=== PATIENT | male | born 1995 | race Caucasian/White ===

== ENCOUNTER 2016-10-17 18:31 | Emergency (ER) | payer BC ==
[2016-10-17] MEDS ORDERED: OPTIRAY 350 100 ML VIAL HMH IV ONE (18:32)
[2016-10-17] MEDS ORDERED: SODIUM CHLORIDE 0.9% 1,000 ML ONE (20:01)
[2016-10-17] MEDS ORDERED: KCL CR 20 MEQ TAB PO ONE (21:11)
== END 2016-10-17 21:55 | disposition home or self-care (01) ==
LOC: ER 18:31
DX: R07.89 Other chest pain (principal); F14.10 Cocaine abuse, uncomplicated; R00.0 Tachycardia, unspecified; F17.210 Nicotine dependence, cigarettes, uncomplicated
CPT/HCPCS: 36415; 71010; 71275; 74175; 80053; 82553; 84484; 85025; 85610; 85730; 93005; 96360; 96361